=== PATIENT | female | born 1995 | race Caucasian/White ===

== ENCOUNTER 2025-02-23 15:56 | Emergency (ER) | payer OTHER, SELFPAY ==
[2025-02-23 15:56] VITALS: BP 140/100; PULSE 99; RESP 18; TEMP 36.5; O2SAT 100
[2025-02-23 15:58] VITALS: BP 140/100; PULSE 99; RESP 18; TEMP 36.5; O2SAT 100
--- NOTE | 2025-02-23 15:58 | ED_ITS ---
HPI - Wound/Laceration General Chief Complaint: Wound/Laceration Stated Complaint: laceration Time Seen by Provider: 02/23/25 15:58 Source: patient Mode of arrival: ambulatory Limitations: no limitations History of Present Illness HPI narrative: Patient is a 29-year-old female with a scalp laceration after hitting it at home on her car port prior to arrival. No loss of consciousness. No other neurological symptoms. Tetanus shot up-to-date last year. No other injuries. Onset (ago): minute(s) (Thirty) Location: scalp (Posterior) Place: home Patient tetanus UTD: Yes Context: accidental Associated symptoms: pain Treatments prior to arrival: bandage Related Data Allergies Allergy/AdvReac Type Severity Reaction Status Date / Time No Known Allergies Allergy Verified 02/23/25 15:58 Review of Systems Review of Systems: All systems reviewed & are unremarkable except as noted in HPI and below Constitutional: Constitutional: Reports no additional constitutional complaints Eyes: Eyes: Reports no additional eye complaints ENT: Reports system reviewed and no additional complaints, except as documented Cardiovascular: Cardiovascular: Reports no additional cardiovascular complaints Respiratory: Respiratory: Reports no additional respiratory complaints Gastrointestinal: Gastrointestinal: Reports no additional gastrointestinal complaints Genitourinary: Genitourinary: Reports no additional female genitourinary complaints Musculoskeletal: Musculoskeletal: Reports no additional musculoskeletal complaints Integumentary/Breasts: Skin/Breast: Reports system reviewed and no additional complaints, except as docu Neurologic: Reports system reviewed and no additional complaints, except as documented Psychiatric: Psychiatric: Reports no additional psychiatric complaints Endocrine: Endocrine: Reports no additional endocrine complaints Hematologic/Lymphatic: Hematologic/Lymphatic: Reports no additional hematologic/lymphatic complaints Allergic/Immunologic: Allergic/Immunologic: Reports no additional allergic/immunologic complaints Exam Const: General: healthy appearing Nutritional Appearance: well nourished Orientation/consciousness: patient oriented x3 HENMT: Head: normal to inspection Ears: external ears normal Face/Nose/Sinus: Normal external nose present Eyes: Conjunctivae: conjunctivae normal Pupils: Equal, round and reactive pupils present EOM: EOMs intact bilaterally Neck: Neck: normal visual inspection Chest: Chest palpation & inspection: normal inspection of the chest Resp: Effort & Inspection: normal respiratory effort and not labored Auscultation: clear to auscultation bilaterally and no crackles Cardio: Rate: regular rate Rhythm: regular rhythm Heart sounds: no murmurs GI: Inspection: non-distended GI Palp: Yes Soft to palpation and No Tenderness to palpation present (GI) Auscultation: normal bowel sounds Back/Spine/Pelvis: Back: no CVA tenderness Other: No neck pain Skin: General skin exam: normal color Rashes: no rashes Wounds: wound noted and wounds noted Other: Posterior occipital scalp towards the crown has a 4 cm linear laceration with light bleeding Neuro: General: patient oriented x3, moves all extremities, no meningeal signs, no focal motor deficits and CN's II-XI intact bilaterally Cranial nerves: Yes Nystagmus not present Speech: normal speech Gait exam (Neuro): Normal gait present Other: Fast exam negative, NIH score 0, GCS is 15 Extrem: General: normal to inspection, no clubbing, cyanosis or edema and no pedal edema Psych: Mental Status: mental status grossly normal Affect: normal affect Attitude: cooperative Course Vital Signs Vital signs: Vital Signs Temperature 36.5 C 02/23/25 15:58 Pulse Rate 99 02/23/25 15:58 Respiratory Rate 18 02/23/25 15:58 Blood Pressure 140/100 H 02/23/25 15:58 Pulse Oximetry 100 02/23/25 15:58 Oxygen Delivery Room Air 02/23/25 15:58 Temperature 36.5 C 02/23/25 15:58 Pulse Rate 99 02/23/25 15:58 Respiratory Rate 18 02/23/25 15:58 Blood Pressure 140/100 H 02/23/25 15:58 Pulse Oximetry 100 02/23/25 15:58 Oxygen Delivery Room Air 02/23/25 15:58 Procedures Laceration Laceration 1: Date: 02/23/25 Time: 16:13 Site: scalp Side (If applicable): right Size (cm): 4 Description: linear Depth: involves muscle layer Pre-repair: wound explored and deep structures intact ====== Skin Level ====== Skin layer closed with: trey (7 trey placed in the linear fashion) ====== Subcutaneous Layer ====== ====== Muscle Layer ====== ====== Tendon Layer ====== Dressing: Patient tolerated procedure well and no complications; triple antibiotic ointment placed MDM - Wound/Laceration MDM Narrative Medical decision making narrative: Patient is a 29-year-old female with a head injury closed event at with a linear laceration after hitting a carport. Tetanus up-to-date. Seven trey placed. No antibiotics needed. No CT scan needed. Discharge Plan Discharge Clinical Impression: Laceration of scalp Qualifiers: Encounter type: initial encounter Qualified Code(s): S01.01XA - Laceration without foreign body of scalp, initial encounter Closed head injury Qualifiers: Encounter type: initial encounter Qualified Code(s): S09.90XA - Unspecified injury of head, initial encounter Patient Disposition: Home Condition: Stable Instructions: Laceration (ED), Head Injury (DC), Staple Care (ED) Additional Instructions: Please follow-up with the primary doctor in the next week. Please have trey removed somewhere between 7 and 8 days. They can remove them at your primary follow-up. Patient Language: Romansh Follow-up/Referrals: UNKNOWN,DOCTOR [Primary Care Provider] Time of Disposition: 16:08
[2025-02-23] MEDS: NEOMYCIN/POLYMYXIN/BACITRACIN OINTMENT PACKET 1 PACKET TOPICAL (16:18)
--- OUTSIDE RECORDS SUMMARY | 2025-02-23 16:23 | XMS_ITS | Clinical Summary ---
Author Organization [facility] [address] [place] [address] Phone Care Team Providers Care Salesforce Business Analyst Name Role Phone Nelson Hanna MD Primary Care Provider + Allergies No known active allergies Medications SPRINTEC, 28, 0.25-35 mg-mcg per tabletIndications: Oral contraceptive pill surveillance TAKE 1 TABLET BY MOUTH DAILY (NEEDS ANNUAL APPOINTMENT ) 84 tablet 8 Active Active Problems Problem Noted Date Diagnosed Date Obesity (BMI 30-39.9) 12/08/2016 Resolved Problems Problem Noted Date Diagnosed Date Resolved Date Body mass index 40+ - severely obese 11/18/2015 12/08/2016 Overview (06/30/2016): BMI 40+ severely obese Immunizations Immunization Administration Dates Next Due DTaP 10/11/2002,1997,1997 ,1997 DTaP / Hep B / IPV 1997 HPV, Unspecified 06/15/2011,02/09/2011 HPV9 12/10/2010 Hep A, Adult 06/10/2008 Hep A, Pediatric 12/05/2007 Hep B Vaccine 02/20/1998,1997 MMR 10/11/2002,05/21/1998 Meningococcal ACWY, Unspecified 12/24/2014 Meningococcal MCV4P (Menactra) 10/27/2008 Tdap 10/27/2008 Varicella 09/25/2015,05/21/1998 Family History Medical History Relation Name Comments Diabetes Maternal Grandfather Diabete s mellitus; Hyperlipidemia Maternal Grandfather Hyper lipidemia; Hyperlipidemia Mother Hyperlipidemi a; Thyroid disease Mother Thyroid diso rder; Heart attack Mother's Brother Myocardial infarction; Diabetes Other 1 Family history of Diabetes mellitus; Hypertension Other 2 Family history of Hypertension; RED 11/18/2015 - Maternal grandparents Relation Name Status Comments Maternal Grandfather Mother Mother's Brother Other 1 Other 2 Social History Tobacco Use Types Packs/Day Years Used Date Smoking Tobacco: Never Smokeless Tobacco: Never Alcohol Use Standard Drinks/Week Comments No 0 (1 standard drink = 0.6 oz pur e alcohol) Comments No Sex and Gender Information Value Date Recorded Sex Assigned at Not on file 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 Gender Identity Not on file Sexual Orientation Not on file 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 on file Not on file Not on file Obstetrics History Para Term AB IAB SAB Ectopic Multiple Livin g Live Births 0 0 0 0 0 0 0 0 0 0 0 Last Filed Vital Signs Vital Sign Reading Time Taken Comments Blood Pressure 132/90 01/22/2018 9:00 AM CDT Pulse 84 01/19/2017 8:54 AM CDT Temperature - - Respiratory Rate 16 01/19/2017 8:54 AM CDT Oxygen Saturation - - Inhaled Oxygen Concentration - - Weight 98 kg (216 lb) 01/22/2018 9:00 AM CDT Height 171.5 cm (5' 7.5) 01/19/2017 8:54 AM CDT Body Mass Index 33.33 01/19/2017 8:54 AM CDT Plan of Treatment Not on file Insurance [employer] SIG [id number] A[employer] SIG [id number] Care Teams Salesforce Business Analyst Relationship Specialty Start Date End Date Nelson Hanna MD [id number] [place] [id number] PCP - General 02/17/16
== END 2025-02-23 16:22 | disposition home or self-care (01) ==
LOC: CHSED 16:22
PROVIDERS: Emergency Provider Emergency Medicine; Referring Provider Family Medicine
DX: S01.01XA Laceration without foreign body of scalp, initial encounter (principal); W45.8XXA Other foreign body or object entering through skin, initial encounter
CPT/HCPCS: 12002; 99282